=== PATIENT | male | born 1985 | race Caucasian/White ===

== ENCOUNTER 2019-11-13 16:06 | Inpatient (IN) | payer SELFPAY ==
[~2019-11-13] VITALS: Ht 172.7 cm; Wt 75.7 kg
[2019-11-13 16:06] VITALS: BP 138/83
--- NOTE | 2019-11-13 16:29 | NUR ---
Guerline taveras in [facility] - 11/13/19 at 1633 by [email or web address] CALLED. NO SHOW.
[2019-11-13] MEDS ORDERED: NACL 0.9% 1,000 ML IV ONE ×2 (16:45→18:10)
--- NOTE | 2019-11-13 16:54 | NUR ---
38 Y/O MALE BIBA ALS C/O ALTERED MENTAL STATUS. PT AOX4 IN THE FIELD PER EMS. PT AROUSABLE TO PAIN, THEN FALLS BACK TO SLEEP. PER EMS PT WAS SHOPLIFTING AND WHEN HE WAS JAVA LEAD ARCHITECT BY PD HE BEGAN TO HAVE GENERALIZED WEAKNESS. PT PLACED IN BED AND PUT ON THE MONITOR. RR EVEN AND UNLABORED. STRAIGHT CATHED FOR URINE, URINE COLLECTED. ERMD MADE AWARE OF PT STATUS. MEDHX: UNOBTAINABLE ALLERGIES: UNOBTAINABLE
--- NOTE | 2019-11-13 17:30 | NUR ---
PT TO CT VIA [facility]
--- NOTE | 2019-11-13 17:43 | NUR ---
PT LAYING IN BED, RR EVEN AND UNLABORED. VISIBLE RISE AND FALL OF THE CHEST. REMAINS ON MONITOR. WILL CONTINUE TO MONITOR
[2019-11-13 18:29] LABS: BASOPHILS # (AUTO) 0.1 K/uL (0.00-0.22); BASOPHILS % (AUTO) 1.4 % (0.0-2.0); EOSINOPHILS # (AUTO) 0.1 K/uL (0-0.4); HEMATOCRIT 44.2 % (36-52); HEMOGLOBIN 15.2 g/dL (12.0-18.0); LYMPHOCYTES % (AUTO) 23.8 % (20.5-51.1); MEAN CORPUSCULAR HEMOGLOBIN 30 pg (27-31); MEAN CORPUSCULAR HGB CONC 35 g/dL (33-37); MEAN CORPUSCULAR VOLUME 86.7 fL (80-94); MONOCYTES # (AUTO) 0.6 K/uL (0.8-1.0); MONOCYTES % (AUTO) 7.2 % (1.7-9.3); NEUTROPHILS # (AUTO) 5.6 K/uL (1.8-7.7); NEUTROPHILS % (AUTO) 66.6 % (42.2-75.2); PLATELET COUNT (AUTO) 342 K/uL (140-450); RED CELL DISTRIBUTION WIDTH 13.9 % (11.6-13.7); WHITE BLOOD COUNT (AUTO) 8.4 K/uL (4.8-10.8)
[2019-11-13 18:41] LABS: BARBITURATE, URINE NEG. ng/ml (NEG <=200); BENZODIAZEPINE, URINE NEG. ng/mL (NEG <=200); CANNABINOID, URINE POS. ng/mL (NEG <=50); COCAINE, URINE NEG. ng/mL (NEG <=300); OPIATE, URINE NEG. ng/mL (NEG <=2000); PHENCYCLIDINE SCREEN,URINE NEG. ng/mL (NEG <=25)
[2019-11-13 18:44] LABS: ALBUMIN 3.9 g/dL (3.4-5.0); ANION GAP 13.1 (8-16); ASPARTATE AMINOTRANSFERASE 20 U/L (15-37); CARBON DIOXIDE 30.7 mmol/L (21-32); CHLORIDE 97 mmol/L (98-107); GFR ARICAN-AMERICAN 108 mL/min (>90); POTASSIUM 4.8 mmol/L (3.5-5.1); SODIUM SERUM 136 mmol/L (136-145); TOTAL BILIRUBIN 0.3 mg/dL (0.0-1.0); UREA NITROGEN, BLOOD 22 mg/dL (7-18)
[2019-11-13 18:46] LABS: GLUCOSE 452 mg/dL (74-106)
[2019-11-13 18:47] LABS: ACETAMINOPHEN < 0.5 ug/ml (10-30)
[2019-11-13 18:49] LABS: SALICYLATE < 2.8 mg/dL (2.8-20.0)
[2019-11-13 18:52] LABS: APPEARANCE,URINE CLEAR (CLEAR); BILIRUBIN,URINE NEGATIVE (NEGATIVE); BLOOD, URINE NEGATIVE (NEGATIVE); COLOR,URINE YELLOW (YELLOW); LEUKOCYTE ESTERASE ,URINE NEGATIVE (NEGATIVE); NITRITE, URINE NEGATIVE (NEGATIVE); UGLUCOSE 3+ (NEGATIVE)
--- NOTE | 2019-11-13 19:21 | NUR ---
REPORT GIVEN TO STEFANY MORALES. TRANSFER OF CARE AT THIS TIME
--- NOTE | 2019-11-13 20:00 | NUR ---
PT RESTING IN BED. RESP EVEN AND UNLABORED. UNRESPONSIVE TO VERBAL STIMULUS, FLUTTERING EYES TO PAINFUL STIMULUS. VSS. ALL NEEDS MET AT THIS TIME.
--- NOTE | 2019-11-13 20:30 | NUR ---
PT RESTING IN BED. OFFICER AT BEDSIDE.
--- NOTE | 2019-11-13 21:47 | NUR ---
PT TAKEN TO CT VIA [facility]
--- NOTE | 2019-11-13 22:00 | NUR ---
PT RESPONSIVE TO PAINFUL STIMULI. RESP EVEN AND UNLABORED. VSS. BED IN LOWEST POSITION, SIDE RAILS RAISED.
--- NOTE | 2019-11-14 00:22 | NUR ---
PT TAKEN TO CT VIA [facility]. PD OFFICER AT BEDSIDE WITH PT.
--- NOTE | 2019-11-14 01:30 | NUR ---
LOREN ARREDONDO LEFT UNIT. ASKED THAT WHEN HE AWAKES TO CALL THEM AND LET THEM KNOW.
--- NOTE | 2019-11-14 01:40 | NUR ---
PATIENT SUPINE IN BED WITH SIDE RAILS UP. BREATHING REGULAR. VSS ON MONITOR. OFFICERS BEDSIDE.
--- NOTE | 2019-11-14 02:55 | NUR ---
PATIENT RESPONSIVE TO PAINFUL STIMULI. VSS ON MONITOR. SIDE RAILS UP.
[2019-11-14] MEDS ORDERED: NACL 0.9% 1,000 ML IV SCH (03:23)
[2019-11-14] MEDS ORDERED: ACETAMINOPHEN 325 MG TAB PO PRN (03:25)
[2019-11-14] MEDS ORDERED: ONDANSETRON 4 MG/2 ML VIAL IM/IVP PRN (03:25)
[2019-11-14] MEDS ORDERED: HYDROcodone/APAP 7.5/325 MG 1 TAB PO PRN (03:25)
[2019-11-14] MEDS ORDERED: DOCUSATE SODIUM 100 MG GELCAP PO PRN (03:25)
--- NOTE | 2019-11-14 03:32 | NUR ---
Called an spoke to [place] dispatch regarding patients mentation. He was momentarily rousable. Repositioning self. When Spoken to, he closed his eyes again and would not repsond to staff.
--- NOTE | 2019-11-14 04:25 | NUR ---
RECEIVED PATIENT VIA GURNEY FROM ER IN STABLE CONDITION. RESPONSIVE TO TACTILE STIMULI. RESPIRATIONS EVEN, UNLABORED. SKIN ASSESSMENT COMPLETE. SKIN WARM, DRY AND INTACT. RIGHT IJ 20G NOTED, FLUSHES WELL. IV SITE TO RIGHT AC 20G PATENT/INTACT, INFUSING FLUIDS WELL. PERAZA CATHETER PATENT WITH CLEAR, YELLOW URINE DRAINING TO GRAVITY. PATIENT IS NON-AMBULATORY AT THIS TIME. FLACC 0. NO S/SX ACUTE DISTRESS. MRSA SCREEN COMPLETED. ORIENTED TO ROOM, STAFF AND CALL LIGHT. CALL LIGHT WITHIN REACH. WILL CONTINUE TO MONITOR.
[2019-11-14 04:34] VITALS: BP 125/75
[2019-11-14 04:35] VITALS: BP 142/91
--- NOTE | 2019-11-14 04:36 | NUR ---
Patient will be admitted to care of Dr. Reddy. Admited to med-surg unit. Will go to room 107-b. Belongings list completed. Report to RN. Patient taken in [facility] by RN
[2019-11-14] MEDS ORDERED: KCL 20 MEQ/WATER INJ PREMIX 200 ML IV PRN (05:00)
[2019-11-14] MEDS ORDERED: INSULIN LISPRO SLIDING SCALE 100 UNITS/ML VIAL SUBQ PRN (05:00)
[2019-11-14] MEDS ORDERED: MECLIZINE 25 MG TAB PO PRN (05:00)
[2019-11-14] MEDS ORDERED: DEXTROSE 50% 50 ML SYR IVP PRN (05:00)
--- NOTE | 2019-11-14 06:27 | NUR ---
PATIENT IN BED WITH EYES CLOSED. FLACC 0. NO S/SX ACUTE DISTRESS. CALL LIGHT WITHIN REACH. WILL CONTINUE TO MONITOR.
--- NOTE | 2019-11-14 07:19 | NUR ---
ENDORSED PATIENT IN STABLE CONDITION TO AM SHIFT NURSE FOR CONTINUITY OF CARE.
--- NOTE | 2019-11-14 07:19 | NUR ---
RECEIVED PT. FROM [facility] [employer]AL[employer] OPERATOR NURSE. PT. IS ASLEEP AND IN BED. IV ON THE RIGHT AC 20G WITH NS RUNNING AT 80ML/HR AND RIGHT IJ WITH SALINE LOCKED. PT. IS IN FALL PRECAUTION. FALL PRECAUTION IN PLACED. CALL LIGHT WITHIN REACH. WILL CONTINUE TO MONITOR.
[2019-11-14] MEDS ORDERED: BLOOD GLUCOSE MONITORING 1 DEV DEV FS SCH (07:30)
[2019-11-14 07:44] LABS: FREE T4 (FREE THYROXINE) 1.14 ng/dL (0.76-1.46); MAGNESIUM 1.8 mg/dL (1.8-2.4); THYROID STIMULATING HORMONE 2.21 uIU/mL (0.34-3.74)
--- NOTE | 2019-11-14 07:54 | NUR ---
ENTERED PT. ROOM FOR V/S. PT IS AWAKE AND SITTING, STARTED TO PULL ON IV AND PERAZA CATHETER AND CLAIMS THAT HE DOES NOT WANT TO BE CAUGHT BY THE POLICE. REMOVED PERAZA CATHETER BEFORE PT. HAD A CHANCE TO PULL IT HIMSELF. AFTER REMOVING IV AND PERAZA, PT. RETRIEVED HIS BELONGINGS AND RAN OUT OF THE FACILITY.
[2019-11-14 08:12] LABS: ANION GAP 13.9 (8-16); CARBON DIOXIDE 26.2 mmol/L (21-32); CREATININE 0.7 mg/dL (0.6-1.3); POTASSIUM 4.1 mmol/L (3.5-5.1)
[2019-11-14 08:20] LABS: BASOPHILS # (AUTO) 0.1 K/uL (0.00-0.22); BASOPHILS % (AUTO) 0.9 % (0.0-2.0); EOSINOPHILS # (AUTO) 0.2 K/uL (0-0.4); EOSINOPHILS % (AUTO) 2.9 % (0.0-4.0); HEMATOCRIT 47.1 % (36-52); HEMOGLOBIN 15.5 g/dL (12.0-18.0); LYMPHOCYTES # (AUTO) 2.4 K/uL (2.0-11.5); LYMPHOCYTES % (AUTO) 33.2 % (20.5-51.1); MEAN CORPUSCULAR HEMOGLOBIN 30 pg (27-31); MEAN CORPUSCULAR HGB CONC 33 g/dL (33-37); MEAN CORPUSCULAR VOLUME 90.7 fL (80-94); MONOCYTES # (AUTO) 0.7 K/uL (0.8-1.0); MONOCYTES % (AUTO) 10.2 % (1.7-9.3); NEUTROPHILS # (AUTO) 3.7 K/uL (1.8-7.7); NEUTROPHILS % (AUTO) 52.8 % (42.2-75.2); PLATELET COUNT (AUTO) 289 K/uL (140-450); RED BLOOD CELL COUNT(AUTO) 5.19 MIL/uL (4.20-6.10); RED CELL DISTRIBUTION WIDTH 13.8 % (11.6-13.7); WHITE BLOOD COUNT (AUTO) 7.1 K/uL (4.8-10.8)
--- NOTE | 2019-11-14 08:40 | NUR ---
PATIENT HAS BEEN SCREENED AND CATEGORIZED MODERATE NUTRITION RISK. PATIENT WILL BE SEEN WITHIN 3-5 DAYS OF ADMISSION. 11/16/19 11/18/[address]
--- NOTE | 2019-11-14 08:50 | NUR ---
DISCHARGE PLANNING: THIS IS A 34 Y/O MALE PATIENT, WHO WAS BROUGHT IN BY [facility] DUE TO WEAKNESS AND LOSS OF CONSCIOUSNESS. INITIAL DIAGNOSIS OF TOXIC ENCEPHALOPATHY. CURRENT LABS INCLUDE WBC 7.1, H/H 15.5/47.1, NA/K 137/4.1, BUN/CREA 15/0.7. MRSA NARES PENDING. UDS SHOWED POSITIVE FOR AMPHETAMINES AND CANNABINOIDS. CT HEAD NEGATIVE. CXR NEGATIVE. CHEST AGIO THORAX SHOWED PATCHY AIRSPACE DISEASE INVOLVING THE RIGHT MIDDLE LOBE. CHEST ANGIO NECK SHOWED PATCHY AIRSPACE DISEASE INVOLVING THE RIGHT MIDDLE LOBE. HEAD CT SHOED NO EVIDENCE OF LARGE VESSEL OCCLUSION. DC PLAN PENDING ON THE PATIENT'S RESPONSE TO TREATMENT.
[2019-11-15 09:13] LABS: T4 (THYROXINE) 8.1 ug/dL (4.5-12.0)
== END 2019-11-14 07:45 | disposition left against medical advice (07) | DRG 917 ==
LOC: EDBD 16:06 → MED 16:06 → MTU 11-14 03:26
PROVIDERS: ADMIT General Practice; ATTEND General Practice
DX: T43.621A Poisoning by amphetamines, accidental (unintentional), initial encounter (principal); G92 Toxic encephalopathy; J98.11 Atelectasis; F17.210 Nicotine dependence, cigarettes, uncomplicated; E86.0 Dehydration; F15.10 Other stimulant abuse, uncomplicated; F12.10 Cannabis abuse, uncomplicated; Y92.89 Other specified places as the place of occurrence of the external cause
CPT/HCPCS: 36415; 36600; 70450; 71045; 71275; 80048; 80053; 80305; 81003; 82140; 82150; 82803; 82948; 83036; 83690; 83735; 83880; 84100; 84436; 84439; 84443; 84479; 84484; 85025; 85610; 85730; 87081; 93005; 96360; 96372; 99285; G0480; G0482; J7030; Q0092; Q9967